=== PATIENT | female | born 1960 | race Caucasian/White ===

== ENCOUNTER → 2023-05-08 10:55 | Outpatient (REF) | payer OTHER, SELFPAY | LOC: RAD 10:55 | PROVIDERS: ATTENDING PHYSICIAN Nurse Practitioner Family; FAMILY PHYSICIAN Internal Medicine | DX: Z13.820 Encounter for screening for osteoporosis (principal) | CPT/HCPCS: 77080 ==

== ENCOUNTER → 2023-11-14 10:49 | Outpatient (REF) | payer MEDICARE, OTHER, SELFPAY | LOC: WDC 10:49 | PROVIDERS: ATTENDING PHYSICIAN Nurse Practitioner Women's Health; FAMILY PHYSICIAN Nurse Practitioner Family | DX: Z12.31 Encounter for screening mammogram for malignant neoplasm of breast (principal) | CPT/HCPCS: 77063; 77067 ==

== ENCOUNTER → 2023-12-25 09:37 | Outpatient (REF) | payer MEDICARE, OTHER, SELFPAY ==
[2023-12-25 11:23] LABS: % Basophils 0.7 % (0-2); % Eosinophils 2.4 % (0-6); % Immature Granulocytes 0.4 % (0-0.5); % Lymphocytes 29.1 % (20.5-51.1); % Monocytes 6.5 % (1.7-9.3); % Neutrophils 60.9 % (42.2-75.2); Absolute Eosinophils 0.1 10^3/uL (0-0.7); Absolute Lymphocytes 1.6 10^3/uL (1.2-3.4); Absolute Monocytes 0.4 10^3/uL (0.1-0.6); Absolute Neutrophils 3.4 10^3/uL (1.4-6.5); Hematocrit 41.4 % (37.0-47.0); Hemoglobin 13.8 g/dL (12.0-16.0); Mean Corp Hgb Conc. 33.3 g/dL (33.0-37.0); Mean Corpuscular Hgb 29.8 pg (27.0-31.0); Mean Corpuscular Volume 89.4 fL (81.0-99.0); Mean Platelet Volume 10.1 fL (7.4-10.4); Nucleated Red Blood Cells % 0 %; Platelet Count 322 10^3/uL (130-400); Red Blood Cell Count 4.63 10^6/uL (4.20-5.40); Red Cell Dist. Width 12.9 % (11.5-14.5); White Blood Cell Count 5.5 10^3/uL (4.8-10.8)
[2023-12-25 12:04] LABS: ALT (SGPT) 19 U/L (0-35); AST (SGOT) 29 U/L (14-36); Albumin 4.5 g/dl (3.5-5.0); Alkaline Phosphatase 70 U/L (38-126); Blood Urea Nitrogen 14 mg/dl (7-17); Calcium 9.5 mg/dl (8.4-10.2); Carbon Dioxide 29 mmol/L (22-30); Chloride 104 mmol/L (98-107); Glucose 87 mg/dl (70-99); HDL Cholesterol 64 mg/dl; LDL Cholesterol, Calculated 138 mg/dl; Potassium 4.3 mmol/L (3.5-5.1); Sodium 142 mmol/L (135-145); Total Bilirubin 0.3 mg/dl (0.2-1.3); Total Cholesterol 229 mg/dl (50-199); Total Protein 7.1 g/dl (6.3-8.2); Triglyceride 138 mg/dl (10-149); Very Low Density Lipoprotein 27 mg/dl (0-30); eGFR > 60.00
[2023-12-25 12:29] LABS: TSH 1.23 uIU/ml (0.47-4.68); TSH Reflex To Free T4 1.23 uIU/ml (0.47-4.68)
== END ==
LOC: REG 09:37
PROVIDERS: ATTENDING PHYSICIAN Nurse Practitioner Family; FAMILY PHYSICIAN Internal Medicine
DX: E03.9 Hypothyroidism, unspecified (principal); E78.2 Mixed hyperlipidemia
CPT/HCPCS: 36415; 80053; 80061; 84443; 85025

== ENCOUNTER → 2024-01-07 09:23 | Outpatient (REF) | payer MEDICARE, OTHER, SELFPAY | LOC: RCS 09:23 | PROVIDERS: ATTENDING PHYSICIAN Nurse Practitioner Family; FAMILY PHYSICIAN Internal Medicine | DX: R01.1 Cardiac murmur, unspecified (principal) | CPT/HCPCS: 93306 ==

== ENCOUNTER → 2024-01-22 08:32 | Outpatient (REF) | payer MEDICARE, OTHER, SELFPAY | LOC: RAD 08:32 | PROVIDERS: ATTENDING PHYSICIAN Nurse Practitioner Family; FAMILY PHYSICIAN Internal Medicine | DX: S06.5XAA Traumatic subdural hemorrhage with loss of consciousness status unknown, initial encounter (principal) | CPT/HCPCS: 70450 ==

== ENCOUNTER → 2024-10-07 10:01 | Outpatient (REF) | payer MEDICARE, OTHER, SELFPAY | LOC: HWRAD 10:01 | PROVIDERS: ATTENDING PHYSICIAN Internal Medicine | DX: E78.2 Mixed hyperlipidemia (principal) | CPT/HCPCS: 75571 ==

== ENCOUNTER → 2024-10-27 13:12 | Outpatient (REF) | payer MEDICARE, OTHER, SELFPAY | LOC: WDC 13:12 | PROVIDERS: ATTENDING PHYSICIAN Nurse Practitioner Women's Health; FAMILY PHYSICIAN Internal Medicine | DX: Z12.31 Encounter for screening mammogram for malignant neoplasm of breast (principal) | CPT/HCPCS: 77063; 77067 ==

== ENCOUNTER → 2024-12-31 09:27 | Outpatient (REF) | payer MEDICARE, OTHER, SELFPAY ==
[2024-12-31 10:31] LABS: Hematocrit 42.2 % (37.0-47.0); Hemoglobin 13.9 g/dL (12.0-16.0); Mean Corp Hgb Conc. 32.9 g/dL (33.0-37.0); Mean Corpuscular Volume 92.5 fL (81.0-99.0); Nucleated Red Blood Cells % 0 %; Platelet Count 342 10^3/uL (130-400); Red Cell Dist. Width 13.1 % (11.5-14.5)
[2024-12-31 12:39] LABS: ALT (SGPT) 21 U/L (0-35); AST (SGOT) 31 U/L (14-36); Albumin 4.6 g/dl (3.5-5.0); Alkaline Phosphatase 79 U/L (38-126); Blood Urea Nitrogen 17 mg/dl (7-17); Calcium 9.3 mg/dl (8.4-10.2); Carbon Dioxide 29 mmol/L (22-30); Chloride 104 mmol/L (98-107); Glucose 89 mg/dl (70-99); HDL Cholesterol 77 mg/dl; LDL Cholesterol, Calculated 177 mg/dl; Potassium 4.2 mmol/L (3.5-5.1); Sodium 141 mmol/L (135-145); Total Protein 7.2 g/dl (6.3-8.2); Very Low Density Lipoprotein 14 mg/dl (0-30); eGFR > 60.00
== END ==
LOC: REG 09:27
PROVIDERS: ATTENDING PHYSICIAN Nurse Practitioner Family; FAMILY PHYSICIAN Internal Medicine
DX: E78.2 Mixed hyperlipidemia (principal); E03.9 Hypothyroidism, unspecified
CPT/HCPCS: 36415; 80053; 80061; 84443; 85025

== ENCOUNTER 2025-02-19 14:18 | Emergency (ER) | payer MEDICARE, OTHER, SELFPAY ==
[2025-02-19] MEDS: TYLENOL 650 MG PO (17:07)
--- NOTE | 2025-02-19 18:01 | ED.GENMED ---
History of Present Illness
<TELLO Landa - Last Filed: 02/19/25 20:50>
General
Chief Complaint: Musculo-Skeletal Complaint
Exam Limitations: none
Time Seen by Provider: 02/19/25 15:29
Nursing documentation reviewed up to this point in time: agreed with
History of Present Illness
History of Present Illness:
Patient is a 64-year female who injured her right wrist ice-skating. She fell and landed on her right wrist. She is right-handed. Denies any other injuries. Denies hitting head. Complains of right wrist pain. Pt is right hand dominant.
Phy Exam
<TELLO Landa - Last Filed: 02/19/25 20:50>
General Physical Exam
General Presentation: no apparent distress
General age: appears stated age
General Skin: warm and dry
General Habitus: normal
General Mental: alert
General Hydration: appears well hydrated
Neurological Exam
Neurological Exam: alert and oriented x3
Musculoskeletal Exam
Musculoskeletal Exam: other (RUE with strong pulses + mild deformity to right wrist no lacerations or abrasions; tender )
Skin Exam
Skin Exam: normal color and warm/dry
Psychiatric Exam
Psychiatric Exam: normal mood/affect
Course
<TELLO Landa - Last Filed: 02/19/25 20:50>
Orders/Labs/Results
Orders:
Orders
02/19/25 14:28
CR Wrist - Right Min 3 Views Urgent
Comment:
Reason For Exam: fall
02/19/25 16:53
Acetaminophen [Tylenol] 650 mg PO NOW STA
02/19/25 17:15
Wrist, Right 3 Views [CR Wrist - Right Min 3 Views] Urgent
Comment:
Reason For Exam: post reduction
02/19/25 18:00
Vital Signs- Treatment ONCE
Frequency: Once
Sling Right-Treatment ONCE
Vital Signs
Initial and Last Documented VS:
Initial Vital Signs
Temp Pulse Resp BP Pulse Ox
98.4 F 80 17 124/70 100
02/19/25 18:04 02/19/25 18:04 02/19/25 18:04 02/19/25 18:04 02/19/25 18:04
Last Documented Vital Signs
Temp Pulse Resp BP Pulse Ox
98.4 F 80 17 124/70 100
02/19/25 18:04 02/19/25 18:04 02/19/25 18:04 02/19/25 18:04 02/19/25 18:04
Professor Of Psychology consulted with Physician
Professor Of Psychology consulted with physician?: Yes
Name of Physician Consulted: beto
<Tessa Martinez MD - Last Filed: 02/19/25 20:37>
Orders/Labs/Results
Orders:
Orders
02/19/25 14:28
CR Wrist - Right Min 3 Views Urgent
Comment:
Reason For Exam: fall
02/19/25 16:53
Acetaminophen [Tylenol] 650 mg PO NOW STA
02/19/25 17:15
Wrist, Right 3 Views [CR Wrist - Right Min 3 Views] Urgent
Comment:
Reason For Exam: post reduction
02/19/25 18:00
Vital Signs- Treatment ONCE
Frequency: Once
Sling Right-Treatment ONCE
Vital Signs
Initial and Last Documented VS:
Initial Vital Signs
Temp Pulse Resp BP Pulse Ox
98.4 F 80 17 124/70 100
02/19/25 18:04 02/19/25 18:04 02/19/25 18:04 02/19/25 18:04 02/19/25 18:04
Last Documented Vital Signs
Temp Pulse Resp BP Pulse Ox
98.4 F 80 17 124/70 100
02/19/25 18:04 02/19/25 18:04 02/19/25 18:04 02/19/25 18:04 02/19/25 18:04
Procedures
<TELLO Landa - Last Filed: 02/19/25 20:50>
Splinting/Sling Placement
Right Wrist:
Procedure completed by: myself
Pre-splint extermity exam: neurovascular intact
Type of splint: volar
Splint material: fiberglass
Normal distal neurovascular exam?: Yes
Joint/Fracture Reduction
Right Wrist:
Indication for procedure:: right radial fracture with dorsal angulation
Procedure completed by: myself /DR Martinez
Anesthesia/sedation: Other (Hematoma block with bupivacaine)
Injury was: closed
Further treatement: needs further treatment
Post reduction exam: stable
Capillary Refill: normal
Normal distal neurovascular exam?: Yes
<TELLO Landa - Last Filed: 02/19/25 20:50>
MDM/Problems Addressed
Differential Diagnosis Includes:
Not limited to wrist fracture versus dislocation
MDM/Problems Addressed:
Patient sustained a fall while ice-skating injured her right wrist she is right-hand dominant no other injuries. She has impacted distal fracture of the radius with dorsal angulation and ulnar styloid fracture as well. Attempted hematoma block and
reduction however still with dorsal angulation will need outpatient Ortho follow-up. Patient placed in a volar splint. She would like to stick with ibuprofen and Tylenol discussed sling ice elevation and close outpatient Ortho follow-up .
<TELLO Landa - Last Filed: 02/19/25 20:50>
*Radiology
Radiology exam reviewed: radiology read reviewed
*Pulse Oximetry
SaO2: 100
Oxygen Mode of Delivery: Room air
Patient hypoxic: no
*Critical Care Note
Total Time (30-74mins, 75-104mins- exclusive of procedures): Not Applicable
ED Attending Note
<TELLO Landa - Last Filed: 02/19/25 20:50>
-
Portions of this chart may have been created with voice recognition software.� Occasional wrong word or��sound alike� substitutions may have occurred due to the inherent limitations of voice recognition software.
<Tessa Martinez MD - Last Filed: 02/19/25 20:37>
ED Attending Note
Patient seen and examined by attending physician: Yes
I performed the substantive portion of visit, reviewed & personally made and approve the management plan that is documented in note by myself or DEBORAH.: Yes
ED Attending Note:
Patient has swollen and deformed appearing right wrist. Patient has good sensation and strong pulses in right upper extremity
I personally gave patient a hematoma block with 5 cc of bupivacaine to the right wrist forearm manual reduction
Discharge Plan
Departure
Patient Disposition: Home (Routine Discharge)
Date of Disposition: 02/19/25
Time of Disposition: 17:56
Patient with high blood pressure during this ER visit?: No
Condition: Fair
Covid-19: Not Applicable
Discharge Problem:
Fracture of wrist
Instructions: Wrist Fracture (DC), Splint Care
Referrals:
Katherine Leija CRNP [Family Provider, Internal Medicine]
Kofi Ramirez MD [Active, Orthopedics]
Activity Restrictions/Additional Instructions:
Keep sling in place until seen and evaluated by orthopedics. Keep elevated as for any much as possible. Ice over the affected splint for the next 24 hours 20 minutes at a time several times a day. Alternate Tylenol and ibuprofen for pain. Do not
wet splint.
Wear sling for support remove at night while sleeping.
Call Saturday morning to make an appointment as soon as possible for orthopedics. Return if any worsening of symptoms, if increased pain if cold numb or blue fingers.
Interventions
Interventions:
*General Assessment Last Done: 02/19/25 14:22
*ED COVID-19 Vaccine History Last Done: 02/19/25 14:22
*ED Influenza Vaccine History Last Done: 02/19/25 14:22
*Risk Screen - Suicide (C-SSRS) Last Done: 02/19/25 14:22
*Nursing Disposition Last Done: 02/19/25 18:22
ED-Musculoskeletal Assessment Last Done: 02/19/25 16:03
Discharge Date and Time
Discharge Date/Time: 02/19/25 18:26
Print Language: HAITIAN
[2025-02-19 18:04] VITALS: BP 124/70
== END 2025-02-19 18:26 | disposition home or self-care (01) ==
LOC: EMR 14:18
PROVIDERS: EMERGENCY PHYSICIAN Emergency Medicine; FAMILY PHYSICIAN Nurse Practitioner Family
DX: S52.501A Unspecified fracture of the lower end of right radius, initial encounter for closed fracture (principal); S52.611A Displaced fracture of right ulna styloid process, initial encounter for closed fracture; V00.211A Fall from ice-skates, initial encounter; Y93.21 Activity, ice skating; Y92.330 Ice skating rink (indoor) (outdoor) as the place of occurrence of the external cause
CPT/HCPCS: 99283; 25605; 73110